=== PATIENT | female | born 1960 | race African-American/Black ===

== ENCOUNTER 2023-02-07 21:59 | Emergency (ER) | payer OTHER ==
[2023-02-07 22:07] VITALS: BP 150/72; PULSE 76; RESP 18; TEMP 97.9; BMI 27.3
[2023-02-07 23:34] LABS: BASO % 0.7 % (0-2.0); EOS % 1.8 % (0-4.5); HEMOGLOBIN 12.4 GM/dL (10.7-15.3); LYMPH % 40.6 % (8-40); MCH 27.3 pg (25.7-33.7); MCHC 32.5 g/dl (32.0-36.0); MEAN CELL VOLUME 84.1 fl (80-96); MEAN PLT VOLUME 8.8 fl (7.5-11.1); MONO % 7.9 % (3.8-10.2); PLATELET COUNT 154 10^3/uL (134-434); RBC 4.52 M/mm3 (3.60-5.2); RDW 14.4 % (11.6-15.6); WHITE BLOOD COUNT 4.2 K/mm3 (4.0-10.0)
[2023-02-08 00:01] LABS: POTASSIUM 4.1 mmol/L (3.5-5.1)
[2023-02-08 00:03] LABS: ALBUMIN 3.8 g/dl (3.4-5.0); BLOOD UREA NITROGEN 14.4 mg/dL (7-18); CALCIUM 8.9 mg/dL (8.5-10.1)
[2023-02-08 00:06] LABS: CREATININE 0.9 mg/dL (0.55-1.3)
[2023-02-08 00:08] LABS: BILIRUBIN,TOTAL 0.4 mg/dL (0.2-1); TOT PROT 6.8 g/dl (6.4-8.2)
[2023-02-08] MEDS ORDERED: ACETAMINOPHEN 500 MG TABLET (FP) PO ONE (00:53)
[2023-02-08] MEDS ORDERED: ACETAMINOPHEN 325 MG TABLET (FP) ONE (00:57)
== END 2023-02-08 01:06 | disposition home or self-care (01) ==
LOC: JER 21:59
DX: I10 Essential (primary) hypertension (principal); R51.9 Headache, unspecified
CPT/HCPCS: 36415; 70450-TC; 80053; 85025; 99284-25